=== PATIENT | male | born 1950 | race Caucasian/White ===

== ENCOUNTER 2020-04-16 16:16 | Emergency (ER) | payer OTHER, BC ==
[~2020-04-16] VITALS: Ht 185.4 cm; Wt 95.5 kg
[2020-04-16 18:54] VITALS: BP 140/78
== END 2020-04-16 18:50 | disposition home or self-care (01) ==
LOC: ER 16:17
DX: S49.91XA Unspecified injury of right shoulder and upper arm, initial encounter (principal); M25.511 Pain in right shoulder; I10 Essential (primary) hypertension; Z88.0 Allergy status to penicillin; X58.XXXA Exposure to other specified factors, initial encounter; Y93.89 Activity, other specified; Y92.89 Other specified places as the place of occurrence of the external cause; Y99.8 Other external cause status
CPT/HCPCS: 73030; 99283